=== PATIENT | male | born 1975 | race Caucasian/White ===

== ENCOUNTER 2021-04-07 14:59 | Outpatient (REF) | payer BC, SELFPAY ==
[2021-04-07 15:59] LABS: COVID-19 Test Positive (Negative)
== END 2021-04-07 15:00 | disposition home or self-care (01) ==
LOC: HO.LAB 14:59
PROVIDERS: Visit Provider Internal Medicine
DX: Z20.822 Contact with and (suspected) exposure to COVID-19 (principal)
CPT/HCPCS: 87635; C9803

== ENCOUNTER 2021-04-21 13:23 | Outpatient (REF) | payer BC, SELFPAY ==
[2021-04-21 13:48] LABS: Binax Now Covid-19 Ag Negative (Negative)
[2021-04-21 13:49] LABS: Binax Internal Control QC Valid
== END 2021-04-21 13:24 | disposition home or self-care (01) ==
LOC: HO.LAB 13:23
PROVIDERS: Visit Provider Internal Medicine
DX: Z20.822 Contact with and (suspected) exposure to COVID-19 (principal)
CPT/HCPCS: C9803

== ENCOUNTER 2021-05-31 10:06 | Outpatient (REF) | payer BC, SELFPAY ==
[2021-05-31 10:40] LABS: MANUAL DIFF FLAG NO
[2021-05-31 11:01] LABS: Basophils Percent Auto 0.5 % (0-2); Eosinophils Absolute Auto 0.2 X10*3/uL (0.0-0.4); Hematocrit 48.1 % (42.0-52.0); Hemoglobin 15.7 g/dl (14.0-18.0); Imm Gran Abs Auto 0.03 X10*3/uL (0.00-0.03); Imm Gran Pct Auto 0.4 % (0.0-0.4); Lymphocytes Absolute Auto 2.3 X10*3/uL (1.2-4.9); Lymphocytes Percent Auto 26.5 % (20-40); Mean Corpuscular HGB Conc 32.6 g/dl (31.0-36.0); Mean Corpuscular Hemoglobin 28.7 pg (27.0-33.0); Mean Corpuscular Volume 87.9 fL (80.0-98.0); Mean Platelet Volume 10.2 fL (9.4-12.4); Monocytes Absolute Auto 0.9 X10*3/uL (0.1-1.2); Neutrophils Absolute Auto 5.2 x10*3/uL (2.0-8.3); Neutrophils Percent Auto 60.6 % (45-73); Platelet Count 220 X10*3/uL (160-400); Red Blood Count 5.47 X10*6/uL (4.60-5.80); Red Cell Distribution Width 12.8 % (11.0-16.0); White Blood Count 8.6 X10*3/uL (4.8-10.8)
[2021-05-31 11:28] LABS: Alanine Aminotransferase 31 U/L (0-40); Albumin Level 4.2 g/dL (3.5-5.0); Alkaline Phosphatase 60 U/L (39-117); Anion Gap 10 (12-20); Aspartate Amino Transferase 19 U/L (5-37); Bilirubin Total 0.3 mg/dL (0.0-1.0); Blood Urea Nitrogen 23 mg/dL (9-16); Calcium 9.2 mg/dL (8.4-10.2); Carbon Dioxide 32 mmol/L (22-29); Chloride 104 mmol/L (96-108); Cholesterol 171 mg/dL; Estimated Glomerular Filt Rate > 60; Glucose Fasting 89 mg/dL (60-99); HDL Cholesterol 42 mg/dL; LDL Cholesterol Calculated 105 mg/dl; Potassium 5.1 mmol/L (3.3-5.1); Sodium 141 mmol/L (135-145); Total Protein 6.8 g/dL (6.5-8.0); Triglycerides 123 mg/dL
[2021-05-31 11:28] LABS: Appearance Urine CLEAR; Color Urine YELLOW; Glucose Urine UA NEG (NEG); Leukocyte Esterase Urine NEG (NEG); Nitrite Urine NEG (NEG); Specific Gravity - Urine 1.025 (1.005-1.025); UACC Culture Trigger NO; Urine Blood 1+ (NEG); Urine Ketones NEG (NEG); Urine Protein NEG (NEG-TRACE)
[2021-05-31 11:47] LABS: Squamous Epithelial Cell Urine TRACE /LPF; WBC Urine 0 /HPF (0-4)
[2021-05-31 11:51] LABS: PSA,Total (Free>4and<10) 0.56 ng/mL (0.00-4.00)
== END 2021-05-31 10:07 | disposition home or self-care (01) ==
LOC: HO.LAB 10:06
PROVIDERS: PCP Internal Medicine; Visit Provider Internal Medicine
DX: Z00.00 Encounter for general adult medical examination without abnormal findings (principal); Z12.5 Encounter for screening for malignant neoplasm of prostate; D64.9 Anemia, unspecified; E78.5 Hyperlipidemia, unspecified; N39.43 Post-void dribbling; R30.0 Dysuria
CPT/HCPCS: 36415; 80053; 80061; 81001; 84153; 85025

== ENCOUNTER 2022-05-13 08:58 | Outpatient (REF) | payer OTHER, SELFPAY ==
[2022-05-13 09:33] LABS: Appearance Urine Clear; Color Urine Yellow; Glucose Urine UA Negative (Negative); Leukocyte Esterase Urine Negative (Negative); Nitrite Urine Negative (Negative); Specific Gravity - Urine >= 1.030 (1.005-1.025); Urine Blood Negative (Negative); Urine Ketones Negative (Negative); Urine Protein Negative (Neg-Trace)
[2022-05-13 10:33] LABS: Alanine Aminotransferase 35 U/L (0-40); Alkaline Phosphatase 67 U/L (39-117); Anion Gap 11 (12-20); Aspartate Amino Transferase 24 U/L (5-37); Bilirubin Total 0.5 mg/dL (0.0-1.0); Blood Urea Nitrogen 19 mg/dL (9-16); Calcium 9.2 mg/dL (8.4-10.2); Carbon Dioxide 29 mmol/L (22-29); Chloride 106 mmol/L (96-108); Cholesterol 170 mg/dL; Estimated Glomerular Filt Rate > 60; Glucose Fasting 87 mg/dL (60-99); HDL Cholesterol 40 mg/dL; LDL Cholesterol Calculated 117 mg/dl; Potassium 4.4 mmol/L (3.3-5.1); Sodium 142 mmol/L (135-145); Total Protein 6.3 g/dL (6.5-8.0); Triglycerides 68 mg/dL
[2022-05-13 10:52] LABS: PSA,Total (Free>4and<10) 0.52 ng/mL (0.00-4.00)
== END 2022-05-13 08:59 | disposition home or self-care (01) ==
LOC: HO.LAB 08:58
PROVIDERS: PCP Internal Medicine; Visit Provider Internal Medicine
DX: Z00.00 Encounter for general adult medical examination without abnormal findings (principal); Z12.5 Encounter for screening for malignant neoplasm of prostate; N39.43 Post-void dribbling; R30.0 Dysuria
CPT/HCPCS: 36415; 80053; 80061; 81003; 84153

== ENCOUNTER 2022-05-19 13:40 | Outpatient (REF) | payer OTHER, SELFPAY ==
[2022-05-19 16:56] LABS: Urine Cytology See Pathology rpt
== END 2022-05-19 13:41 | disposition home or self-care (01) ==
LOC: HO.LAB 13:40
PROVIDERS: PCP Internal Medicine; Visit Provider Urology
DX: R31.29 Other microscopic hematuria (principal); N39.43 Post-void dribbling; N40.0 Benign prostatic hyperplasia without lower urinary tract symptoms
CPT/HCPCS: 51798; 88112

== ENCOUNTER 2022-06-23 09:38 | Outpatient (REF) | payer OTHER, SELFPAY ==
--- NOTE | ~2022-06-23 | US_ITS ---
EXAMINATION: US RETROPERITONEAL COMPLETE (RENAL) CLINICAL INFORMATION: Other microscopic hematuria. COMPARISON: None available. TECHNIQUE: Real-time imaging of the kidneys and bladder. FINDINGS: RIGHT KIDNEY: 11.2 x 5.8 x 5.7 cm (SAG x AP x TRV). The kidney is normal in size, contour, and echogenicity. Renal cortical thickness is normal. No calculi or focal parenchymal lesions. No hydronephrosis. LEFT KIDNEY: 12.1 x 6.6 x 4.5 cm (SAG x AP x TRV). The kidney is normal in size, contour, and echogenicity. Renal cortical thickness is normal. No calculi or focal parenchymal lesions. No hydronephrosis. BLADDER: Well distended and normal. Bilateral ureteral jets are demonstrated. Prevoid bladder volume is 217 mL. Postvoid bladder volume is 4 mL. ADDITIONAL FINDINGS: Prostate dimensions are 3.9 x 3.5 x 4.1 cm (volume 29.7 mL). US/US retroperitoneal comp IMPRESSION: 1. Unremarkable ultrasound examination of the kidneys. 2. Prostate dimensions are upper normal.
== END 2022-06-23 09:39 | disposition home or self-care (01) ==
LOC: HO.HMGCX 09:38
PROVIDERS: PCP Internal Medicine; Visit Provider Urology
DX: N40.0 Benign prostatic hyperplasia without lower urinary tract symptoms (principal); R31.29 Other microscopic hematuria
CPT/HCPCS: 76770

== ENCOUNTER → 2022-06-27 16:08 | Outpatient (BNVA) | payer OTHER, SELFPAY | PROVIDERS: PCP Internal Medicine; Visit Provider Urology | DX: Z13.89 Encounter for screening for other disorder (principal) ==

== ENCOUNTER 2022-12-26 14:54 | Outpatient (AMB) | payer OTHER, SELFPAY ==
--- NOTE | 2022-12-26 14:59 | A.OFFVIS_ITS ---
Intake Intake Visit Reasons: 6m follow up Intake Note: Patient presents today for a follow-up on BPH w/o urinary obs/LUTS: Meds- None Allergies to Antibiotic- No Known Allergies Blood Thinner- None PVR- 0 Photo Machine Operator Required: No Accompanied by: Self / Same As Patient Allergies bees Allergy (Unknown, Uncoded 06/27/22 16:10) Unknown HPI HPI Comments History of Present Illness Details Sarthak is a 47-year-old male who presents today to the office for a follow-up. 12/26/2022? He is followed today for BPH/LUTS. He was last seen by me on 06/27/2022. The patient c/o'd of dark colored urine and was advised to increase his fluid intake.? He states that his urinary symptoms are stable at this time. He states that he feels like he is emptying the bladder adequately. Review of charts: Last visit: 06/27/2022-- He has had concerns regarding dark urine color, some bladder pressure and feeling not adequately emptying his bladder.?? He is trying to increase his fluid intake. I reviewed the US findings, noting the kidneys are normal.?? He is emptying adequately.? Renal US results reviewed--06/23/22--Unremarkable. Kidneys: WNL.? Prostate? 3.9 x 3.5 x 4.1 cm (volume 29.7 mL). Prostate dimensions are upper normal. PSA results reviewed-- 05/13/2022--0.52. Plan:?LUTS. improved. Will continue to monitor.??Advised to drink adequate amount of water. Office follow-up after 6 months. 12/26/2022: Evaluation today--UA-- leukoc ytes: negative; blood: negative; bladder scan PVR: 0 mL. 12/26/2022: Plan: PSA screening for every 2 years. Will check approximately on next April 2024. Follow-up Tele-health visit in one year. Encouraged the patient to return the office sooner if LUTS recur. [facility] Medical History Tongue lesion Dribbling urine Encounter for physical examination Class 1 obesity with body mass index (BMI) of 34.0 to 34.9 in adult Smoker Surgical History History of varicose vein ligation Family History Father Diabetes Hypertension HIV (human immunodeficiency virus infection) Mother Diabetes Hypertension Daughter No problems noted. Son No problems noted. Son No problems noted. Sister No problems noted. Brother No problems noted. Brother No problems noted. Maternal Aunt Cancer Social History Housing: Apartment Alcohol intake: former Patient Tobacco Use Status: Current everyday Tobacco user Tobacco use type: Cigarette Cigarettes Per Day: 4 e-Cigarette/Vaping Use: Never Used Second Hand Smoke Exposure: No service: No Current occupational status: unemployed Cognitive needs: No Hearing needs: No Vision needs: No Review of Systems Const Reports no additional complaints Eyes Reports no additional complaints ENT Denies neck pain Card Denies leg edema Resp Denies cough GI Denies constipation Musc Reports no additional complaints and Denies neck pain Skin/Breast Denies rash and Denies unusual bruising Neuro Reports no additional complaints Psych Reports no additional complaints Endo Reports no additional complaints Enrico/Lymph Reports no additional complaints Aller/Immun Reports no additional complaints Office Procedures Post Void Residual Post Residual Void Post Void Residual (PVR): 0 70085-Qssd Void Residual by ultrasound Results AMB Urinalysis, Automated UA Leukoctes 0 Zoraida/uL Last Edit by SHEILA Vazquez on 12/26/22 15:26 UA Nitrite Negative Last Edit by SHEILA Vazquez on 12/26/22 15:26 UA Urobilinogen 0.2 mg/dL Last Edit by SHEILA Vazquez on 12/26/22 15:2 6 UA Protein 0 mg/dL Last Edit by SHEILA Vazquez on 12/26/22 15:26 UA pH 6.0 Last Edit by SHEILA Vazquez on 12/26/22 15:26 UA Blood 0 Ari/uL Last Edit by SHEILA Vazquez on 12/26/22 15:26 UA Specific [place] 1.030 Last Edit by SHEILA Vazquez on 12/26/22 15: 26 UA Ketone Negative Last Edit by CHRISTA VazquezA on 12/26/22 15:26 UA Bilirubin 0 mg/dL Last Edit by CHRSITA VazquezA on 12/26/22 15:26 UA Glucose 0 mg/dL Last Edit by Jarrell Cannon Adrianne on 12/26/22 15:26 Results Reviewed Results Reviewed: Laboratory Last Values Urine pH (Auto) 6.0 12/26/22 15:16 Specific [place] (Auto) 1.030 12/26/22 15:16 Urine Protein (Auto) 0 mg/dL 12/26/22 15:16 Glucose (UA)(Auto) 0 mg/dL 12/26/22 15:16 Urine Ketones (Auto) Negative 12/26/22 15:16 Urine Blood (Auto) 0 Ari/uL 12/26/22 15:16 Urine Nitrite (Auto) Negative 12/26/22 15:16 Urine Bilirubin (Auto) 0 mg/dL 12/26/22 15:16 Urine Urobilinogen (Auto) 0.2 mg/dL 12/26/22 15:16 Leukocyte Esterase (Auto) 0 Zoraida/uL 12/26/22 15:16 Assessment & Plan Assessment & Plan (1) Urinary dribbling: Code(s): N39.43 - Post-void dribbling (2) BPH w/o urinary obs/LUTS: Code(s): N40.0 - Benign prostatic hyperplasia without lower urinary tract symptoms Plan PSA screening for every 2 years. Will check approximately on next April 2024. Follow-up Tele-health visit in one year. Encouraged the patient to return the office sooner if LUTS recur. Orders: Orders AMB Urinalysis Automated 12/26/22 Z13.9 - Encounter for screening, unspecified AMB Post Void Residual by ultrasound 12/26/22 N39.8 - Other specified disorders of urinary system Patient Instructions: The patient had an opportunity to ask questions regarding treatment plan. All questions were answered. Imaging, Laboratory studies and physical exam results were discussed and reviewed in detail. No major barriers to understanding were identified. The patient expressed understanding and agreement with the above treatment plan.? ? ? The patient is aware they should contact our office by phone for worsening of their current condition or the appearance of new symptoms. Compliance is encouraged with any medications and followup testing that is ordered.? ? ? It is a privilege to be allowed the opportunity to participate in the urologic care of your patient. If you have any questions or concerns regarding treatment for the above conditions please do not hesitate to contact me. The office telephone contact is [phone].? ? ? This note is constructed in part using voice recognition software. While every effort has been made to ensure accuracy bake room worker errors may have been included.? ? ? Yours sincerely,? ? ? Joslyn Smith MD? ? Coding Level of Care Code Est Pt Level 3 (13919) Diagnoses Urinary dribbling N39.43 BPH w/o urinary obs/LUTS N40.0 CPT Codes Post Residual Void - PVR CPT Code: 36023-Lxai Void Residual by ultrasound ([id number])
== END 2022-12-26 15:52 | disposition home or self-care (01) ==
PROVIDERS: PCP Internal Medicine; Visit Provider Urology
DX: N39.43 Post-void dribbling (principal); N40.0 Benign prostatic hyperplasia without lower urinary tract symptoms
CPT/HCPCS: 99213

== ENCOUNTER → 2022-12-26 14:54 | Outpatient (BNVA) | payer OTHER, SELFPAY | PROVIDERS: Visit Provider Urology | DX: N40.0 Benign prostatic hyperplasia without lower urinary tract symptoms (principal); N39.43 Post-void dribbling | CPT/HCPCS: 51798; 81003 ==

== ENCOUNTER 2023-05-11 09:17 | Outpatient (AMB) | payer OTHER, SELFPAY ==
[2023-05-11 09:24] VITALS: BP 154/102; BMI 34.1
--- NOTE | 2023-05-11 09:24 | MHC.PC.OV ---
Vital Signs 05/11/23 09:24 05/11/23 09:56 Height 5 ft 7 in Weight 218 lb BMI 34.1 BP 154/102 H 150/90 H Blood Pressure Location Lt brachial Lt brachial Position Sitting Sitting Intake Visit Reasons: physical exam Intake Note: Patient here for a physical exam Duplicating Machine Servicer Required: No Accompanied by: Significant Other Allergies bees Allergy (Unknown, Uncoded 05/11/23 09:40) Unknown Medication List - Last Reconciled 05/11/23 by Dia Gongora MD buprenorphine-naloxone 2-0.5 mg (Suboxone) 1 film buccal DAILY Tobacco use date assessed: 05/11/23 Dental Screening Dental Screen Date: 05/11/23 Did you have a dental visit in the last 12 months?: Yes Did you have a dental problem in the last 6 months where you did not have access to dental care?: No Was dental information given to patient?: Patient has dentist HPI HPI Comments History of Present Illness Details This is a 47-year-old male that comes for his physical exam. Has no family history of colon cancer but would like to do colonoscopy. No chest pain or shortness of breath. Accompanied by girlfriend. Has onychomycosis and dark 2nd toenail. Elevated blood pressure today and will be recheck in 3 weeks by nurse navigator. [facility] Medical History Tongue lesion Dribbling urine Encounter for physical examination Class 1 obesity with body mass index (BMI) of 34.0 to 34.9 in adult Smoker Surgical History History of varicose vein ligation Family History Father Diabetes Hypertension HIV (human immunodeficiency virus infection) Mother Diabetes Hypertension Daughter No problems noted. Son No problems noted. Son No problems noted. Sister No problems noted. Brother No problems noted. Brother No problems noted. Maternal Aunt Cancer Social History Housing: Apartment Alcohol intake: former Patient Tobacco Use Status: Current everyday Tobacco user Tobacco use type: Cigarette Cigarettes Per Day: 6 e-Cigarette/Vaping Use: Never Used Second Hand Smoke Exposure: No service: No Current occupational status: unemployed Cognitive needs: No Hearing needs: No Vision needs: No Questionnaire PHQ-9 Over the last 2 weeks, how often have you been bothered by any of the following problems? 1. Little interest or pleasure in doing things: not at all 2. Feeling down, depressed, or hopeless: not at all 3. Trouble falling or staying asleep, or sleeping too much: not at all 4. Feeling tired or having little energy: not at all 5. Poor appetite or overeating: not at all 6. Feeling bad about yourself - or that you are a failure or have let yourself or your family down: not at all 7. Trouble concentrating on things, such as reading the newspaper or watching television: not at all 8. Moving or speaking so slowly that other people could have noticed. Or the opposite - being so fidgety or restless that you have been moving around a lot more than usual: not at all 9. Thoughts that you would be better off or of hurting yourself in some way: not at all Total score: 0 Depression Screening Interpretation: Negative Depression Screening Done: Yes 55276 - PHQ-9 Billing: Yes Source: Developed by Drs. Won Perez, Kathy Alatorre, Davion Limon and colleagues, with an educational bowen from [employer]. Thrive Questionnaire Date Thrive assessed: 05/11/23 I am a: Patient What is your living situation today?: I have a steady place to live Within the past 12 months, did the food you bought not last and you didn't have the money to get more?: Never true Within the past 12 months, did you worry whether your food would run out before you got money to buy more?: Never true Do you have trouble paying for medicines?: No Do you have trouble getting transportation to medical appointments?: No Do you have trouble paying your heating and electricity bill?: No Do you have trouble taking care of your child, family member or friend?: No Do you have trouble with day-to-day activities such as bathing, preparing meals, shopping, managing finances, etc.?: No Are you currently unemployed and looking for a job?: No Are you interested in more education?: No Please select the resources that you would like help with: None Currently or been in a relationship where the following occur: no concerns reported THRIVE Score: 0 AUDIT C Alcohol Use Questionnaire (AUDIT-C) 1. How often do you have a drink containing alcohol?: Never Total Score: 0 RUDI-7 AMB Questionnaire RUDI-7 Date RUDI - 7 assessed: 05/11/23 Feeling nervous, anxious, or on edge: 0 = Not at all Not being able to stop or control worryin = Not at all Worrying too much about different things: 0 = Not at all Trouble relaxin = Not at all Being so restless that it is hard to sit still: 0 = Not at all Becoming easily annoyed or irritable: 0 = Not at all Feeling afraid as if something awful might happen: 0 = Not at all Total RUDI-7 score (0-4 normal; 5-9 mild; 10-14 moderate; 15-21 severe): 0 Source: Developed by Drs. Won Perez, Kathy Alatorre, Davion Limon and colleagues, with an educational bowen from [employer]. RUDI-7 Assessment Billing RUDI-7 Assessment Tool: RUDI-7 Assessment 64971 Review of Systems Const All systems reviewed & are unremarkable except as noted in HPI and below Eyes Reports no additional complaints, Denies change in vision and Denies other visual disturbances Card Denies chest pain at rest, Denies chest pain with activity, Denies edema, Denies irregular heart rhythm, Denies claudication, Denies dyspnea, Denies dyspnea on exertion, Denies orthopnea, Denies paroxysmal nocturnal dyspnea and Denies slow heart rate Resp Denies cough, Denies dyspnea and Denies dyspnea on exertion GI Denies abdominal pain, Denies change in bowel habits, Denies excessive flatus, Denies nausea and Denies vomiting Denies urinary hesitancy, Denies urinary incontinence and Denies urinary urgency Musc Denies abnormal gait, Denies atrophy, Denies deformity and Denies limited range of motion Skin/Breast Denies bleeding lesions, Denies changing lesions and Denies rash Neuro Denies abnormal gait, Denies behavioral changes, Denies confusion and Denies lack of coordination Psych Denies behavioral changes and Denies confusion Physical exam (Primary Care) Vital Signs: Last Vital Signs BP 154/102 H 05/11/23 09:24 BMI result Body Mass Index 34.1 Tobacco/Smoking Status: Tobacco use Status Tobacco use date assessed 05/11/23 05/11/23 09:31 Patient Tobacco Use Status Current everyday Tobacco 05/11/23 09:31 Tobacco use type Cigarette 05/11/23 09:31 e-Cigarette/Vaping Use Never Used 05/11/23 09:31 PHQ-9: PHQ-9 Score PHQ-9: Total score 0 05/11/23 09:31 Depression Screening Interpretation: Negative Thrive Assessment: Date of Thrive Assessment Date Thrive assessed 05/11/23 05/11/23 09:31 Currently or been in a relationship where the following occur: no concerns reported Const General: No confusion Orientation/consciousness: patient oriented x3 and No confusion HENMT Head: Yes normal to inspection, Yes normocephalic and Yes atraumatic Ears: external ears normal General nose exam: Normal external nose present and No nasal discharge present Face and sinus: Yes sinuses nontender Mouth: lip normal Eyes General: appearance normal, both eyes and all related structures Eyelids: Yes eyelids normal Conjunctivae: conjunctivae normal Neck Neck: Yes normal visual inspection and Yes supple Resp Effort & Inspection: normal respiratory effort Auscultation: clear to auscultation bilaterally Cardio Jugular venous distension: no JVD Rate: regular rate Rhythm: regular rhythm Heart sounds: S1 normal heart sound present and S2 normal heart sound present GI Inspection: Yes normal to inspection Palpation (GI): Soft to palpation and nontender Auscultation: normal bowel sounds Skin General skin exam: no rashes or lesions noted Neuro General: patient oriented x3, no focal motor deficits and No confusion Extrem Other: Onychomycosis in right 1st and 5th toenail. Right 2nd toenail black. General: Yes full ROM Psych Appearance: grossly normal Assessment and Plan Assessment & Plan (1) Encounter for physical examination: Code(s): Z00.00 - Encounter for general adult medical examination without abnormal findings Plan: Repeat in a year. Orders: Orders Lipid Panel 3 Months E78.5 - Hyperlipidemia, unspecified Comprehensive [place]. Panel Fast 3 Months Z00.00 - Encounter for general adult medical examination without abnormal findings Referrals Open Access Screening Colonoscopy Referral Z12.11 - Encounter for screening for malignant neoplasm of colon Podiatry Referral B35.1 - Tinea unguium Medications: New terbinafine HCl 250 mg PO DAILY 90 days 90 tabs 0RF B35.1 - Tinea unguium Coding Level of Care Code Est Pt Prev Care 40-64y(89527) Diagnoses Encounter for physical examination Z00.00 Additional Codes RUDI-7 Assessment Billing - RUDI-7 Assessment Tool: RUDI-7 Assessment 00537 ([id number]) Time Spent (min) 31
[2023-05-11 09:56] VITALS: BP 150/90
== END 2023-05-11 10:04 | disposition home or self-care (01) ==
PROVIDERS: Visit Provider Internal Medicine
DX: Z00.00 Encounter for general adult medical examination without abnormal findings (principal)
CPT/HCPCS: 99396

== ENCOUNTER 2023-12-27 10:36 | Outpatient (AMB) | payer OTHER, SELFPAY ==
--- NOTE | 2023-12-27 10:36 | MHC.OFFVIS ---
Intake Visit Reasons: 1y follow up Intake Note: 1Yr F/u Fire Regulator Required: No Allergies bees Allergy (Unknown, Uncoded 05/11/23 09:40) Unknown HPI Comments Details: 12/27/23--Sarthak was initially evaluated due to LUTS urgency, hesitancy, encouraged increase hydration. Telehealth fu today, patient states he is doing well, denies hematuria, dysuria. Discussed PSA screening next year. Review of charts: 12/26/2022?Sarthak is a 47-year-old male who presents today to the office for a follow-up. He is followed today for BPH/LUTS. He was last seen by me on 06/27/2022. The patient c/o'd of dark colored urine and was advised to increase his fluid intake.? He states that his urinary symptoms are stable at this time. He states that he feels like he is emptying the bladder adequately. 12/26/2022: Evaluation today--UA-- leukocytes: negative; blood: negative; bladder scan PVR: 0 mL. Plan: PSA screening for every 2 years. Will check approximately on next April 2024. Follow-up Tele-health visit in one year. Encouraged the patient to return the office sooner if LUTS recur. 06/27/2022--He has had concerns regarding dark urine color, some bladder pressure and feeling not adequately emptying his bladder.??He is trying to increase his fluid intake. I reviewed the US findings, noting the kidneys are normal.?He is emptying adequately.? Renal US results reviewed--06/23/22--Unremarkable. Kidneys: WNL.?Prostate? 3.9 x 3.5 x 4.1 cm (volume 29.7 mL). Prostate dimensions are upper normal. PSA results reviewed-- 05/13/2022--0.52. Plan:?LUTS. improved. Will continue to monitor.??Advised to drink adequate amount of water. Office follow-up after 6 months. [facility] Medical History Tongue lesion Dribbling urine Encounter for physical examination Class 1 obesity with body mass index (BMI) of 34.0 to 34.9 in adult Smoker Surgical History History of varicose vein ligation Family History Father Diabetes Hypertension HIV (human immunodeficiency virus infection) Mother Diabetes Hypertension Daughter No problems noted. Son No problems noted. Son No problems noted. Sister No problems noted. Brother No problems noted. Brother No problems noted. Maternal Aunt Cancer Social History Housing: Apartment Alcohol intake: former Patient Tobacco Use Status: Current everyday Tobacco user Tobacco use type: Cigarette Cigarettes Per Day: 6 e-Cigarette/Vaping Use: Never Used Second Hand Smoke Exposure: No service: No Current occupational status: unemployed Cognitive needs: No Hearing needs: No Vision needs: No Review of Systems Const All systems reviewed & are unremarkable except as noted in HPI and below Reports no additional complaints Eyes Reports no additional complaints ENT Reports no additional complaints Card Reports no additional complaints Resp Reports no additional complaints GI Reports no additional complaints Reports as per HPI Musc Reports no additional complaints Skin/Breast Reports system reviewed and no additional complaints, except as documented Neuro Reports no additional complaints Psych Reports no additional complaints Endo Reports no additional complaints Enrico/Lymph Reports no additional complaints Aller/Immun Reports no additional complaints Telehealth Telehealth Telehealth Platform: Telephone Location of provider rendering services: practice address Location of patient: address on file Patient Identification confirmed using: Name, : Yes Telehealth method: voice only Patient verbally consented to treatment: Yes Patient verbally consented to billing insurance company: Yes Patient informed of any privacy concerns related to visit: Yes Minutes spent on Phone/Video with Pt.: 12 Assessment & Plan Assessment & Plan (1) BPH w/o urinary obs/LUTS: Code(s): N40.0 - Benign prostatic hyperplasia without lower urinary tract symptoms Category: Medical (2) Screening PSA (prostate specific antigen): Code(s): Z12.5 - Encounter for screening for malignant neoplasm of prostate Category: Medical Plan Fu in one year PSA prior Orders: Orders PSA,Total (Free>4and<10) 10 Months N40.0 - Benign prostatic hyperplasia without lower urinary tract symptoms, Z12.5 - Encounter for screening for malignant neoplasm of prostate Patient Instructions: The patient had an opportunity to ask questions regarding treatment plan. The patient expressed understanding and agreement with the above treatment plan. The patient is aware they should contact our office by phone for worsening of their current condition or the appearance of new symptoms. Compliance is encouraged with any medications and followup testing that is ordered. It is a privilege to be allowed the opportunity to participate in the urologic care of your patient. If you have any questions or concerns regarding treatment for the above conditions please do not hesitate to contact me. The office telephone contact is [phone]. This note is constructed in part using voice recognition software. While every effort has been made to ensure accuracy human service technician errors may have been included. Yours sincerely, Joslyn Smith MD Coding Level of Care Code Tele Est Pt Level 3 (49658) Diagnoses BPH w/o urinary obs/LUTS N40.0 Screening PSA (prostate specific antigen) Z12.5
== END 2023-12-27 11:07 | disposition home or self-care (01) ==
LOC: HO.HUSH 10:37
PROVIDERS: PCP Internal Medicine; Visit Provider Urology
DX: N40.0 Benign prostatic hyperplasia without lower urinary tract symptoms (principal); Z12.5 Encounter for screening for malignant neoplasm of prostate
CPT/HCPCS: 99442

== ENCOUNTER 2024-02-20 06:37 | Day surgery (SDC) | payer OTHER, SELFPAY ==
[2024-02-15 15:20] VITALS: BMI 34.1
[2024-02-20 06:50] VITALS: BP 125/72; PULSE 57; RESP 18; TEMP 36.9; O2SAT 97; BMI 34.0
[2024-02-20] MEDS: Lactated Ringers 1,000 ML 50 ML IVCONT (07:12)
--- NOTE | 2024-02-20 07:45 | MHC.SHP ---
Pre-Procedural Eval Section A - 24 Hr Update-Section A only Date of Service: 02/20/24 Section B - Complete if H&P > 30 days Chief Complaint: Encounter for screening for malignant neoplasm of Details of Present Illness: Tongue lesion Dribbling urine Encounter for physical examination Class 1 obesity with body mass index (BMI) of 34.0 to 34.9 in adult Smoker Surgical History History of varicose vein ligation Present Medications: see Short Stay Collaborative assessment Allergies: Allergies Allergy/AdvReac Type Severity Reaction Status Date / Time bees Allergy Unknown Unknown Uncoded 05/11/23 09:40 Review of Systems Review of Systems Comment: Ten point ROS negative Exam Exam Comment: Gen appear: No acute distress HEENT: no icterus Chest: No overt resp distress Abd: soft, nontender, nondistended Psych: Stable affect, answering questions appropriately Neuro: A/Ox3 noted to move all extremities spontaneously Ext: no peripheral edema Plan Diagnosis/Plan: Unchanged I have reviewed the history and physical and performed a pertinent physical examination on my patient. No changes have occurred unless specified. Time Spent With Patient Time: Total time managing care of this patient today ____ minutes.
[2024-02-20 08:33] VITALS: BP 118/66; PULSE 65; RESP 16; TEMP 36.9; O2SAT 98
--- NOTE | 2024-02-20 08:33 | P.OPN-COLO_ITS ---
Colonoscopy Operative Note Operative Note Date of Service: 02/20/24 Narrative: Procedure: Colonoscopy Indication: Screening Endoscopist: Kalyn Ortiz MD Anesthesia Provider: Moira Persaud CRNA Anesthesia type: MAC Instrument: Olympus [id number]-[id number] Consent: Indication, risks vs benefits, and alternatives were discussed with the patient who gave written informed consent to proceed. EKG, pulse, pulse oximetry and blood pressure were monitored throughout the procedure. Please see anesthesia flowsheet. Procedure: The patient was brought to the procedure room and placed in the left lateral decubitus position. IV medications were administered by the anesthesia provider in attendance. A digital rectal exam was performed which was normal. A distal attachment cap was affixed to the tip of the colonoscope which was then inserted through the anus and advanced through the colon to the cecum at 85 cm. Appendiceal orifice and ileocecal valve were identified. Mucosa was carefully examined under high definition white light as the instrument was slowly withdrawn in a retrograde panoramic fashion. Retroflexion was performed in rectum. The procedure was not difficult. There were no immediate obvious complications. The quality of the prep was BBPS: 2+3+2 = adequate Withdrawal time minutes. Limitations: No limitations. Findings: Mucosa: Normal to cecum. Protruding lesions: * Medium internal hemorrhoids without stigmata of recent bleeding. Impression: 1. Normal colon mucosa 2. Internal hemorrhoids Recommendations: - Repeat colonoscopy for asymptomatic colorectal cancer screening in 10 years.
[2024-02-20 08:52] VITALS: BP 124/77; PULSE 59; RESP 17; TEMP 36.7; O2SAT 99
== END 2024-02-20 09:02 | disposition home or self-care (01) ==
PROVIDERS: PCP Internal Medicine; Visit Provider Internal Medicine
PROC: 0DJD8ZZ Inspection of Lower Intestinal Tract, Via Natural or Artificial Opening Endoscopic (ICD-10-PCS; CPT 45378; principal; 2024-02-20 07:40)
DX: Z12.11 Encounter for screening for malignant neoplasm of colon (principal); K64.8 Other hemorrhoids; E78.5 Hyperlipidemia, unspecified; F17.210 Nicotine dependence, cigarettes, uncomplicated; Z79.899 Other long term (current) drug therapy
CPT/HCPCS: 45378; J2003; J2704

== ENCOUNTER → 2024-02-20 06:37 | Outpatient (BNV) | payer OTHER, SELFPAY | PROVIDERS: PCP Internal Medicine; Visit Provider Internal Medicine | DX: Z12.11 Encounter for screening for malignant neoplasm of colon (principal); K64.8 Other hemorrhoids | CPT/HCPCS: 45378 ==

== ENCOUNTER 2024-03-05 12:47 | Outpatient (AMB) | payer OTHER, SELFPAY ==
--- NOTE | 2024-03-05 12:53 | MHC.PC.OV ---
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 The patient self-reports a history of smoking approximately six cigarettes daily, correlating increased smoking behavior with moments of employment and noted a reduction when not working. The patient has attempted to quit smoking using nicotine replacement therapy such as gum and patches, finding the combination too overwhelming in terms of nicotine intake. He discusses exploring medications like bupropion and varenicline (Chantix) as alternative cessation aids, despite concerns about potential side effects like suicidal ideation with varenicline. The patient has a BMI of 30, indicating obesity and has experienced fluctuations in weight. At one point, he weighed 185 pounds but has since been informed by family that he appeared unwell at that weight. He notices significant changes in facial appearance, such as cheek thinning, associated with weight loss. He expresses a desire to manage weight effectively while balancing perceptions of health. The patient also underwent a colonoscopy on February 20, 2024 that was normal. [facility] Medical History Tongue lesion Dribbling urine Encounter for physical examination Class 1 obesity with body mass index (BMI) of 34.0 to 34.9 in adult Smoker Surgical History Hx of colonoscopy History of varicose vein ligation Family History Father Diabetes Hypertension HIV (human immunodeficiency virus infection) Mother Diabetes Hypertension Daughter No problems noted. Son No problems noted. Son No problems noted. Sister No problems noted. Brother No problems noted. Brother No problems noted. Maternal Aunt Cancer Social History Housing: Apartment Alcohol intake: former Patient Tobacco Use Status: Current everyday Tobacco user Tobacco use type: Cigarette Cigarettes Per Day: 6 e-Cigarette/Vaping Use: Never Used Second Hand Smoke Exposure: No service: No Current occupational status: unemployed Cognitive needs: No Hearing needs: No Vision needs: No Questionnaire Thrive Questionnaire Date Thrive assessed: 05/11/23 RUDI-7 AMB Questionnaire RUDI-7 Date RUDI - 7 assessed: 05/11/23 Source: Developed by Drs. Won Perez, Kathy Alatorre, Davion Limon and colleagues, with an educational bowen from [employer]. Review of Systems Const Details: - General: Reports feeling healthy and no current discomfort. - Cardiac and Pulmonary: No specific complaints provided. Physical exam (Primary Care) Vital Signs: Last Vital Signs BP 136/80 03/05/24 13:00 BMI result Body Mass Index 30.9 BMI Assessment/Plan discussion: High BMI High, discussed plan: lifestyle, weight reduction, dietary and physical activity Tobacco/Smoking Status: Tobacco use Status Tobacco use date assessed 05/11/23 03/05/24 12:58 Patient Tobacco Use Status Current everyday Tobacco 03/05/24 12:58 Tobacco use type Cigarette 03/05/24 12:58 e-Cigarette/Vaping Use Never Used 03/05/24 12:58 Are you ready to quit: Yes Tobacco cessation counseling provided: Yes Items discussed: Nicotine replacement and QuitWorks Relapse Prevention: discussed the importance of a supportive environment, discussed extending NRT, discussed negative mood or depression after quitting, weight gain after smoking is common and discussed dietary, exercise and/or lifestyle changes Number of minutes spent counselin CPT code: 54226 - 4-10 Minutes Thrive Assessment: Date of Thrive Assessment Date Thrive assessed 05/11/23 03/05/24 12:58 Const Other: General: No confusion Neck: Normal visual inspection and Yes supple Respiratory: Normal respiratory effort, clear to auscultation bilaterally Cardiovascular: No jugular venous distension, regular rate, regular rhythm, S1 normal heart sound present and S2 normal heart sound present Extremities: Full ROM Psychology: Grossly normal Office Procedures Flu Questionnaire Does the patient have a severe egg allergy?: No Immunizations Fluarix Triv 0172-6000 (PF) 45 mcg (15 mcg x 3)/0.5 mL IM syringe Performing Provider: Dia Gongora MD Performing [place] [facility] Documented (not given) by: SHEILA Rosario on 03/05/24 13:03 Reason Not Given: Patient Refused Coding Level of Care Code Est Pt Level 3 (02957) Complex EM visit Add On G2211 Diagnoses Class 1 obesity with body mass index (BMI) of 30.0 to 30.9 in adult E66.811; Z68.30 Nicotine dependence F17.200 Microscopic hematuria R31.29 Additional Codes Vital Signs *Quality* - CPT code: 83043 - 4-10 Minutes ([id number]) Time Spent (min) 19 Assessment & Plan Assessment & Plan (1) Class 1 obesity with body mass index (BMI) of 30.0 to 30.9 in adult: Code(s): E66.811 - Obesity, class 1; Z68.30 - Body mass index [BMI] 30.0-30.9, adult Category: Medical (2) Nicotine dependence: Code(s): F17.200 - Nicotine dependence, unspecified, uncomplicated Category: Medical (3) Microscopic hematuria: Code(s): R31.29 - Other microscopic hematuria Category: Medical Plan - Obesity: Encourage dietary modifications aimed at gradual weight reduction to reach a healthier BMI. Discuss potential for further weight management consultations. - Tobacco use disorder: Provide information on pharmacological options including bupropion and varenicline, evaluating risks and benefits. Encourage establishing a Quit Day. - Allergic reaction to bees: Maintain current avoidance and emergency plan if previously established. - History of minor urological procedure: Continued monitoring not necessary unless new symptoms occur. - Suboxone use: Monitor for any sequelae related to prior medication use or withdrawal symptomatology. Patient was informed and verbally consented to the use of an ambient scribe for clinic note documentation during this visit. I advised the patient on managing tobacco use, discussing the potential use of bupropion and varenicline. I explained their benefits, success rates, and acknowledged the significant risk of suicidal ideation associated with varenicline. The patient is encouraged to plan a cessation date and utilize support systems, recognizing the common emotional and physical challenges associated with quitting. Weight management discussions were held, with acknowledgment of the patient's previous experiences with weight fluctuation. I assured the patient there are no immediate health concerns but addressed the longer-term benefits of reaching an optimal weight range. Orders: Orders Influenza [id number] Immunization Today Z23 - Encounter for immunization Lipid Panel 2 Months E78.5 - Hyperlipidemia, unspecified PSA,Total (Free>4and<10) 2 Months R35.1 - Nocturia Comprehensive [place]. Panel Fast 2 Months R03.0 - Elevated blood-pressure reading, without diagnosis of hypertension Patient Instructions: - Establish a planned quit date for smoking cessation. - Consider bupropion or varenicline after evaluating side-effect profiles. - Monitor weight carefully and consider dietary adjustments for gradual weight loss. - Follow up with any new or urgent symptoms, particularly concerning prior urological issues.
[2024-03-05 13:00] VITALS: BP 136/80; BMI 30.9
== END 2024-03-05 13:25 | disposition home or self-care (01) ==
PROVIDERS: PCP Internal Medicine; Visit Provider Internal Medicine
DX: E66.811 Obesity, class 1 (principal); Z68.30 Body mass index [BMI] 30.0-30.9, adult; F17.200 Nicotine dependence, unspecified, uncomplicated; R31.29 Other microscopic hematuria; Z23 Encounter for immunization

== ENCOUNTER → 2024-03-05 12:47 | Outpatient (BNVA) | payer OTHER, SELFPAY | PROVIDERS: PCP Internal Medicine; Visit Provider Internal Medicine | DX: E66.811 Obesity, class 1 (principal); Z68.30 Body mass index [BMI] 30.0-30.9, adult; R31.29 Other microscopic hematuria; F17.210 Nicotine dependence, cigarettes, uncomplicated; Z28.21 Immunization not carried out because of patient refusal | CPT/HCPCS: 90471 ==

== ENCOUNTER 2024-05-16 10:04 | Outpatient (AMB) | payer OTHER, SELFPAY ==
--- NOTE | 2024-05-16 10:11 | A.OFFPC_ITS ---
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 Required per policy Accompanied by: Self / Same As Patient Allergies bees Allergy (Unknown, Uncoded 05/16/24 10:33) Unknown Medication List - Last Reconciled 05/16/24 by Dia Gongora MD buprenorphine-naloxone 2-0.5 mg (Suboxone) 1 film buccal DAILY magnesium aspart,citrate,oxide mg PO melatonin 3 mg PO BEDTIME PRN omega 5-boo-zxo-fish oil 1,200 (144-216) mg (Fish Oil) caps PO varenicline tartrate 0.5 mg PO BID 30 days Tobacco use date assessed: 05/16/24 Dental Screening Dental Screen Date: 05/16/24 Did you have a dental visit in the last 12 months?: Yes Did you have a dental problem in the last 6 months where you did not have access to dental care?: No Was dental information given to patient?: Patient has dentist HPI HPI Comments History of Present Illness Details The patient is a 48-year-old male presenting for an annual physical examination and management of chronic medical conditions including Opioid Use Disorder. The patient has a history of Opioid Use Disorder managed with Suboxone treatment, which was initiated due to a prior history of Percocet dependence following surgery. 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 He reports feeling well-managed on Suboxone and acknowledges its role in avoiding opioid purchases outside prescribed settings. The patient is concerned about nicotine dependence, having unsuccessfully attempted to quit smoking through methods such as gum and patches in the past. Current smoking is approximately 6 cigarettes daily. Additionally, the patient has a history of hypertension, for which he takes amlodipine, and reports being compliant with medication. Other medications include magnesium supplements for sleep, infrequently used melatonin, and occasional intake of fish oil. The family history includes cardiovascular and metabolic diseases, contributing to concerns about his hypertension and personal health management. Colonoscopy done last year was normal. Declines flu vaccine today. - Tetanus vaccine administered last in . Next due in 2029. - Discussed influenza vaccination; tj nt has not received and no current plans noted. - Colonoscopy completed in January 2024 . - Screened for hypertension and choleste rol management. - Cigarette smoking cessation counseling offered, discussed use of Chantix with potential side effects. - Blood tests for glucose levels and pot ential liver function currently conducted at the [facility] [place]. - Discussed importance of disclosing all supplements and medications to monitor side effects and interactions. [facility] Medical History Tongue lesion Dribbling urine Encounter for physical examination Class 1 obesity with body mass index (BMI) of 34.0 to 34.9 in adult Smoker Surgical History Hx of colonoscopy History of varicose vein ligation Family History Father Diabetes Hypertension HIV (human immunodeficiency virus infection) Mother Diabetes Hypertension Daughter No problems noted. Son No problems noted. Son No problems noted. Sister No problems noted. Brother No problems noted. Brother No problems noted. Maternal Aunt Cancer Social History (Updated 05/16/24 @ 10:42 by Dia Gongora MD) Housing: Apartment Alcohol intake: former Patient Tobacco Use Status: Current everyday Tobacco user Tobacco use type: Cigarette Cigarettes Per Day: 6 e-Cigarette/Vaping Use: Never Used Second Hand Smoke Exposure: Yes service: No Current occupational status: unemployed Cognitive needs: No Hearing needs: No Vision needs: No Questionnaire PHQ-9 Over the last 2 weeks, how often have you been bothered by any of the following problems? 1. Little interest or pleasure in doing things: not at all 2. Feeling down, depressed, or hopeless: not at all 3. Trouble falling or staying asleep, or sleeping too much: not at all 4. Feeling tired or having little energy: several days 5. Poor appetite or overeating: not at all 6. Feeling bad about yourself - or that you are a failure or have let yourself or your family down: not at all 7. Trouble concentrating on things, such as reading the newspaper or watching television: not at all 8. Moving or speaking so slowly that other people could have noticed. Or the opposite - being so fidgety or restless that you have been moving around a lot more than usual: not at all 9. Thoughts that you would be better off or of hurting yourself in some way: not at all Total score: 1 Depression Screening Interpretation: Positive Depression Screening Follow-up: Existing condition and Follow-up Visit Requested Depression Screening Done: Yes 89454 - PHQ-9 Billing: Yes Source: Developed by Drs. Won Perez, Kathy Alatorre, Davion Limon and colleagues, with an educational bowen from [employer]. Thrive Questionnaire Date Thrive assessed: 05/14/24 I am a: Patient What is your living situation today?: I have a steady place to live Within the past 12 months, did the food you bought not last and you didn't have the money to get more?: Sometimes True Within the past 12 months, did you worry whether your food would run out before you got money to buy more?: Sometimes True Do you have trouble paying for medicines?: No Do you have trouble getting transportation to medical appointments?: No Do you have trouble paying your heating and electricity bill?: Yes Do you have trouble taking care of your child, family member or friend?: No Do you have trouble with day-to-day activities such as bathing, preparing meals, shopping, managing finances, etc.?: No Are you currently unemployed and looking for a job?: No Are you interested in more education?: No Please select the resources that you would like help with: Utilities Currently or been in a relationship where the following occur: I choose not to answer THRIVE Score: 3 AUDIT C Alcohol Use Questionnaire (AUDIT-C) 1. How often do you have a drink containing alcohol?: Never 2. How many drinks containing alcohol do you have on a typical day when you are drinking?: 1 or 2 3. How often do you have six or more drinks on one occasion?: Never Total Score: 0 Score Reviewed/Action Taken: No RUDI-7 AMB Questionnaire RUDI-7 Date RUDI - 7 assessed: 05/16/24 Feeling nervous, anxious, or on edge: 0 = Not at all Not being able to stop or control worryin = Not at all Worrying too much about different things: 1 = Several days Trouble relaxin = Not at all Being so restless that it is hard to sit still: 1 = Several days Becoming easily annoyed or irritable: 0 = Not at all Feeling afraid as if something awful might happen: 0 = Not at all Total RUDI-7 score (0-4 normal; 5-9 mild; 10-14 moderate; 15-21 severe): 2 Source: Developed by Drs. Won Perez, Kathy Alatorre, Davion Limon and colleagues, with an educational bowen from [employer]. RUDI-7 Assessment Billing RUDI-7 Assessment Tool: RUDI-7 Assessment 07560 Review of Systems Const All systems reviewed & are unremarkable except as noted in HPI and below Card Denies chest pain at rest, Denies chest pain with activity, Denies edema, Denies irregular heart rhythm, Denies claudication, Denies dyspnea, Denies dyspnea on exertion, Denies orthopnea, Denies paroxysmal nocturnal dyspnea and Denies slow heart rate Resp Denies cough, Denies dyspnea and Denies dyspnea on exertion GI Denies abdominal pain, Denies change in bowel habits, Denies excessive flatus, Denies nausea and Denies vomiting Denies urinary hesitancy, Denies urinary incontinence and Denies urinary urgency Musc Denies atrophy, Denies deformity and Denies limited range of motion Skin/Breast Denies bleeding lesions, Denies changing lesions and Denies rash Physical exam (Primary Care) Vital Signs: Last Vital Signs Temp 97.1 F 05/16/24 10:12 Pulse 78 05/16/24 10:12 BP 132/74 05/16/24 10:12 Pulse Ox 98 05/16/24 10:12 Oxygen Delivery Method Room Air 05/16/24 10:12 BMI result Body Mass Index 32.1 BMI Assessment/Plan discussion: High BMI High, discussed plan: lifestyle, weight reduction, dietary and physical activity Tobacco/Smoking Status: Tobacco use Status Tobacco use date assessed 05/16/24 05/16/24 10:16 Patient Tobacco Use Status Current everyday Tobacco 05/16/24 10:16 Tobacco use type Cigarette 05/16/24 10:16 e-Cigarette/Vaping Use Never Used 05/16/24 10:16 Are you ready to quit: Yes Tobacco cessation counseling provided: Yes Items discussed: Nicotine replacement and QuitWorks Relapse Prevention: discussed the importance of a supportive environment, discussed extending NRT, discussed negative mood or depression after quitting, weight gain after smoking is common and discussed dietary, exercise and/or lifestyle changes Number of minutes spent counselin CPT code: 31013 - 4-10 Minutes PHQ-9: PHQ-9 Score PHQ-9: Total score 1 05/16/24 10:16 Depression Screening Interpretation: Positive Depression Screening Follow-up: Existing condition and Follow-up Visit Requested Thrive Assessment: Date of Thrive Assessment Date Thrive assessed 05/14/24 05/16/24 10:16 Currently or been in a relationship where the following occur: I choose not to answer HENMT Head: Yes normal to inspection, Yes normocephalic and Yes atraumatic Ears: external ears normal Eyes General: appearance normal, both eyes and all related structures Eyelids: Yes eyelids normal Conjunctivae: conjunctivae normal Neck Neck: Yes normal visual inspection and Yes supple Resp Effort & Inspection: normal respiratory effort Auscultation: clear to auscultation bilaterally Cardio Jugular venous distension: no JVD Rate: regular rate Rhythm: regular rhythm Heart sounds: S1 normal heart sound present and S2 normal heart sound present GI Inspection: Yes normal to inspection Palpation (GI): Soft to palpation and nontender Auscultation: normal bowel sounds Skin General skin exam: no rashes or lesions noted Neuro General: no focal motor deficits Extrem General: Yes full ROM Psych Appearance: grossly normal Coding Level of Care Code Est Pt Level 3 (10727) Est Pt Prev Care 40-64y(31858) Diagnoses Encounter for physical examination Z00.00 Smoker F17.200 Opioid dependence in remission F11.21 Substance use status: in remission Additional Codes PHQ-9 - 60563 - PHQ-9 Billing: Yes ([id number]) RUDI-7 Assessment Billing - RUDI-7 Assessment Tool: RUDI-7 Assessment 33023 ([id number]) Vital Signs *Quality* - CPT code: 15988 - 4-10 Minutes ([id number]) Time Spent (min) 35 Assessment & Plan Assessment & Plan (1) Encounter for physical examination: Code(s): Z00.00 - Encounter for general adult medical examination without abnormal findings Category: Medical (2) Smoker: Code(s): F17.200 - Nicotine dependence, unspecified, uncomplicated Category: Social Hx (3) Opiate dependence: Code(s): F11.20 - Opioid dependence, uncomplicated Category: Medical Qualifiers: Substance use status: in remission Qualified Code(s): F11.21 - Opioid d ependence, in remission Plan - Continue Suboxone management for Opioid Use Disorder. - Prescribe Chantix for smoking cessation; inform the patient of possible mood changes and other side effects. - Order an electrocardiogram to evaluate the cardiac impact of opioid therapy. - Evaluate testosterone levels as opioids can affect these levels. - Reiterate the importance of medication compliance for hypertension; continue amlodipine. - Follow-up in three months for blood work related to glucose, liver function, and those impacted by opioid use. - Emphasize lifestyle changes to aid in smoking cessation and overall health improvement. Patient was informed and verbally consented to the use of an ambient scribe for clinic note documentation during this visit. During the visit, I discussed the patient?s management plan for Opioid Use Disorder, emphasizing the importance of adherence to Suboxone therapy. 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 I suggested Chantix as a potential aid for smoking cessation, cautioning the patient about mood changes and increased anxiety, yet highlighting its success in reducing nicotine cravings. Additionally, I detailed the need for an electrocardiogram to monitor any cardiac effects of opioid therapy and explored the possibility of low testosterone levels due to opioid use, advising lab evaluation. The patient was encouraged to maintain his medication routine for hypertension and enhance disclosure of all supplements and medications to ensure careful monitoring of his condition. It was agreed upon that the patient would return in three months for lab follow-up and further evaluation. Orders: Orders Testosterone, Free/Total Today F11.20 - Opioid dependence, uncomplicated ECG 12 lead EKG Today F11.20 - Opioid dependence, uncomplicated Comprehensive [place]. Panel Fast Today Z00.00 - Encounter for general adult medical examination without abnormal findings Lipid Panel Today Z00.00 - Encounter for general adult medical examination without abnormal findings PSA,Total (Free>4and<10) Today R35.1 - Nocturia Medications: New varenicline tartrate administer on days 1, 2, and 3 of therapy 0.5 mg PO BID 30 days 60 tabs 0RF F17.200 - Nicotine dependence, unspecified, uncomplicated Patient Instructions: - Continue Suboxone use as prescribed for Opioid Use Disorder. - Start Chantix for smoking cessation; monitor for mood changes and stop if adverse effects occur. - Schedule an electrocardiogram to assess heart function. - Consider testosterone testing as advised. - Maintain current regimen with amlodipine for blood pressure. - Book follow-up appointment in three months for ongoing assessment and lab tests. - Disclose all medications and supplements to ensure safe clinical management. - Consider reducing smoking as much as possible as part of health improvement.
[2024-05-16 10:12] VITALS: BP 132/74; PULSE 78; TEMP 36.2; O2SAT 98; BMI 32.1
--- OUTSIDE RECORDS SUMMARY | 2024-05-16 11:01 | XMS_ITS | Clinical Summary ---
Author Organization [employer] [employer] [facility] ity Address [address] [place] [address] Care Team Providers Care Technical Recruiter Name Role Phone Unavailable Primary Care Provider Unavailabl e Social History Tobacco Use Types Packs/Day Years Used Date Smoking Tobacco: Never Assessed Sex and Gender Information Value Date Recorded Sex Assigned at Not on file Legal Sex Male 9:04 AM EST Gender Identity Not on file Sexual Orientation Not on file Plan of Treatment Health Maintenance Due Date Last Done Comments DTaP,Tdap,and Td Vaccines (1 - Tdap) 1996 Hepatitis B Vaccines (1 of 3 - 19+ 3-dose series) 1996 COVID-19 Vaccine (2023-2 5 season) 2023 Influenza Vaccine (#1) 2023 HIB Vaccines Aged Out No longer eligi ble based on patient's age to complete this topic HPV Vaccines Aged Out No longer eligi ble based on patient's age to complete this topic Hepatitis A Vaccines Aged Out No long er eligible based on patient's age to complete this topic IPV Vaccines Aged Out No longer eligi ble based on patient's age to complete this topic MMR Vaccines Aged Out No longer eligi ble based on patient's age to complete this topic Meningococcal ACWY Vaccine Aged Out N o longer eligible based on patient's age to complete this topic Meningococcal B Vacine Aged Out No lo nger eligible based on patient's age to complete this topic Pneumococcal Vaccine: Pediat rics (0 to 5 Years) and At-Risk Patients (6 to 64 Years) Aged Out No longer eligible b ased on patient's age to complete this topic RSV Immunization Patients Un yudy 20 months Aged Out No longer eligible b ased on patient's age to complete this topic Varicella Vaccines Aged Out No longer eligible based on patient's age to complete this topic
== END 2024-05-16 10:50 | disposition home or self-care (01) ==
PROVIDERS: PCP Internal Medicine; Visit Provider Internal Medicine
DX: Z00.00 Encounter for general adult medical examination without abnormal findings (principal); F17.210 Nicotine dependence, cigarettes, uncomplicated; F11.21 Opioid dependence, in remission

== ENCOUNTER → 2024-05-16 10:04 | Outpatient (BNVA) | payer OTHER, SELFPAY | PROVIDERS: PCP Internal Medicine; Visit Provider Internal Medicine | DX: Z00.00 Encounter for general adult medical examination without abnormal findings (principal); F11.20 Opioid dependence, uncomplicated; F17.210 Nicotine dependence, cigarettes, uncomplicated | CPT/HCPCS: 96127 ==

== ENCOUNTER → 2024-05-28 11:21 | Outpatient (REF) | payer OTHER, SELFPAY ==
--- NOTE | 2024-05-28 11:29 | ECG_ITS ---
Test Reason : OPIOID DEPENDENCE Blood Pressure : */* mmHG Vent. Rate : 59 BPM Atrial Rate : 59 BPM P-R Int : 196 ms QRS Dur : 110 ms QT Int : 402 ms P-R-T Axes : 43 -16 26 degrees QTcB Int : 397 ms Sinus bradycardia Otherwise normal ECG No previous ECGs available Referred By: Dia Gongora Electronically Signed By: MAXIMILIANO ZAYAS MD
[2024-05-28 13:09] LABS: Alanine Aminotransferase 33 U/L (0-40); Alkaline Phosphatase 70 U/L (39-117); Anion Gap 10 (12-20); Aspartate Amino Transferase 27 U/L (5-37); Bilirubin Total 0.3 mg/dL (0.0-1.0); Blood Urea Nitrogen 16 mg/dL (9-16); Calcium 8.6 mg/dL (8.4-10.2); Carbon Dioxide 28 mmol/L (22-29); Chloride 108 mmol/L (96-108); Cholesterol 169 mg/dL (<200); Estimated Glomerular Filt Rate > 60; Glucose Fasting 90 mg/dL (60-99); HDL Cholesterol 58 mg/dL (>40); LDL Cholesterol Calculated 101 mg/dL (<100); Sodium 142 mmol/L (135-145); Total Protein 6.8 g/dL (6.5-8.0); Triglycerides 54 mg/dL (<150)
[2024-05-28 13:24] LABS: PSA,Total (Free>4and<10) 0.38 ng/mL (0.00-4.00)
--- OUTSIDE RECORDS SUMMARY | 2024-05-28 14:21 | XMS_ITS | Clinical Summary ---
Author Organization [facility] [employer] [facility] ity Address [address] [place] [address] Care Team Providers Care Dust Brush Assembler Name Role Phone Unavailable Primary Care Provider [...]
== END ==
LOC: HO.CARD 11:21
PROVIDERS: PCP Internal Medicine; Visit Provider Internal Medicine
DX: Z12.5 Encounter for screening for malignant neoplasm of prostate (principal); E78.5 Hyperlipidemia, unspecified; R35.1 Nocturia; R03.0 Elevated blood-pressure reading, without diagnosis of hypertension; F11.20 Opioid dependence, uncomplicated
CPT/HCPCS: 36415; 80053; 80061; 84153; 84402; 84403; 93005

== ENCOUNTER → 2024-05-28 11:29 | Outpatient (BNV) | payer OTHER, SELFPAY | PROVIDERS: PCP Internal Medicine; Visit Provider Internal Medicine Cardiovascular Disease | DX: R00.1 Bradycardia, unspecified (principal) | CPT/HCPCS: 93010 ==